=== PATIENT | female | born 1975 | race American Indian/Alaskan Native ===

== ENCOUNTER 2018-10-05 14:25 | Outpatient (CLI) | payer BC ==
--- NOTE | 2018-10-09 11:41 | Mammography Report ---
BILATERAL SCREENING MAMMOGRAM DIGITAL WITH CAD 3D TOMOSYNTHESIS INDICATION: Screening. COMPARISONS: None. FINDINGS: 2D and 3D craniocaudal and mediolateral oblique views of both breasts were obtained [employer] digital acquisition. In addition to standard review, the examination was analyzed for possible abn ormalities using a computer-assisted detection device (R2 Image Licensed Psychiatric Technician). The breasts are heterogeneously dense, which may obscure small masses. No mass, architectural distor tion or suspicious calcifications. No suspicious findings are noted in either breast. IMPRESSION: NO EVIDENCE OF MALIGNANCY IN EITHER BREAST. SCREENING MAMMOGRAPHY IN ONE YEAR IS RECOMMENDED. BI-RADS CATEGORY 1: NEGATIVE COMMENT: Patient follow-up letters are generated by our [employer] application. Signer Name: Carlos Ramos MD Signed: 10/09/2018 11:36 AM Workstation Name: [id number]
--- NOTE | 2018-10-12 10:33 | Mammography Report ---
BILATERAL SCREENING MAMMOGRAM DIGITAL WITH CAD 3D TOMOSYNTHESIS INDICATION: Screening. COMPARISONS: None. FINDINGS: 2D and 3D craniocaudal and mediolateral oblique views of both breasts were obtained [employer] digital acquisition. In addition to standard review, the examination was analyzed for possible abn ormalities using a computer-assisted detection device (R2 Image Electric Serviceman). The breasts are heterogeneously dense, which may obscure small masses. No mass, architectural distor tion or suspicious calcifications. No suspicious findings are noted in either breast. IMPRESSION: NO EVIDENCE OF MALIGNANCY IN EITHER BREAST. SCREENING MAMMOGRAPHY IN ONE YEAR IS RECOMMENDED. BI-RADS CATEGORY 1: NEGATIVE COMMENT: Patient follow-up letters are generated by our [employer] application. Signer Name: Carlos Ramos MD Signed: 10/09/2018 11:36 AM Workstation Name: [id number]
== END 2018-10-05 14:26 | disposition home or self-care (01) ==
LOC: SPVWC 14:25
PROVIDERS: ATTEND Obstetrics & Gynecology
DX: Z12.31 Encounter for screening mammogram for malignant neoplasm of breast (principal)
CPT/HCPCS: 77063; 77067

== ENCOUNTER 2021-02-24 10:31 | Outpatient (CLI) | payer BC ==
--- NOTE | 2021-02-24 13:51 | Mammography Report ---
BILATERAL DIGITAL SCREENING MAMMOGRAM WITH CAD WITH TOMOSYNTHESIS HISTORY: Screening mammogram. TECHNIQUE: Routine digital mammographic imaging performed. This examination was interpreted with rashard sow benefit of Computer-aided Detection analysis. Tomosynthesis images were acquired and reviewed. COMPARISON: 10/05/2018 FINDINGS: Breast Density: scattered fibroglandular appearance of the breast tissue. Digital CC and MLO views demonstrate no mammographic evidence of malignancy. IMPRESSION: No mammographic evidence of malignancy. If the clinical examination remains stable, recommend bilate ral mammogram in approximately one year. BIRADS 1: Negative. FURTHER INFORMATION: According to the [employer], yearly mammograms are recommend ed starting at age 40 and continuing as long as a woman is in good health. Clinical Breast Exams shou ld be part of a periodic health exam-about every 3 years for women in their 20s and 30s and every yea r for women 40 and over. Breast self exam is an option for women starting in their 20s. Any breast ch chalo noted on a breast self exam should be reported promptly to the patient's healthcare provider. Br east MRI is recommended for women with an approximately 20-25% or greater lifetime risk of breast can cer, including women with a strong family history of breast or ovarian cancer and women who have been treated for Hodgkin's disease. A negative Mammography report should not discourage follow up or biopsy of a clinically significant f inding and/or abnormality. Dense breast tissue may obscure small neoplasms. The patient will be entered into a reminder system with a target due date for the next screening mamm ogram. Signer Name: Chris Arnett MD Signed: 02/24/2021 1:47 PM Workstation Name: [id number]
== END 2021-02-24 10:32 | disposition home or self-care (01) ==
LOC: SPVWC 10:31
PROVIDERS: ATTEND Obstetrics & Gynecology
DX: Z12.31 Encounter for screening mammogram for malignant neoplasm of breast (principal); N64.89 Other specified disorders of breast
CPT/HCPCS: 77063; 77067